=== PATIENT | female | born 1975 | race Hispanic/Latino ===

== ENCOUNTER 2017-12-14 13:37 | Outpatient (CLI) | payer BC ==
--- NOTE | 2017-12-15 11:26 | MMO ---
BILATERAL SCREENING MAMMOGRAMS: Date: 12/14/17 HISTORY: Screening mammography. No family history of breast cancer and no personal history of breast cancer. This patient's mammogram was interpreted with the assistance of computer-aided detection. COMPARISON: 11/27/15. FINDINGS: There is a heterogeneously dense parenchymal pattern, which may lower the sensitivity of mammography. Scattered benign-appearing calcifications are again seen in each breast. There is an isodense round mass with partially obscured margins seen within the lower inner right breast measuring 8.0 mm. No ad ditional dominant mass or suspicious grouping of microcalcifications are seen in either breast. No ar chitectural distortion is identified. IMPRESSION: BIRADS 0: Incomplete: Need Additional Imaging Evaluation and/or Prior Mammograms for Comparison Spot magnification compression in CC and MLO views of right breast, in addition to 90 degree mediolat eral view recommended. Ultrasound should also be scheduled if needed. The facility will notify patient of need for additional imaging services. POS: [facility]
== END 2017-12-14 13:38 | disposition home or self-care (01) ==
LOC: SCSMAMMO 13:37
PROVIDERS: ATTEND Family Medicine
DX: Z12.31 Encounter for screening mammogram for malignant neoplasm of breast (principal)
CPT/HCPCS: 77067

== ENCOUNTER 2017-12-21 13:03 | Outpatient (CLI) | payer BC | END 2017-12-21 13:04 | disposition home or self-care (01) | LOC: BICMAMMO 13:03 | PROVIDERS: ATTEND Family Medicine | DX: N63.10 Unspecified lump in the right breast, unspecified quadrant (principal) | CPT/HCPCS: G0279 ==

== ENCOUNTER 2022-05-04 14:42 | Outpatient (CLI) | payer BC | END 2022-05-04 14:43 | disposition home or self-care (01) | LOC: BICMAMMO 14:42 | PROVIDERS: ATTEND Family Medicine | DX: N64.89 Other specified disorders of breast (principal) | CPT/HCPCS: G0279 ==

== ENCOUNTER 2023-04-17 11:57 | Outpatient (CLI) | payer BC | END 2023-04-17 11:58 | disposition home or self-care (01) | LOC: ULT 11:57 | PROVIDERS: ATTEND Physician Assistant | DX: R22.9 Localized swelling, mass and lump, unspecified (principal) | CPT/HCPCS: 76999 ==